=== PATIENT | female | born 2000 | race Caucasian/White ===

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

== ENCOUNTER 2022-10-13 14:33 | Outpatient (REF) | payer MEDICAID, SELFPAY ==
--- NOTE | 2022-10-13 10:45 | PAPFT_PTH ---
PATIENT: Sofia Messina [facility] U#:[id number] AGE/SX: 22/F ROOM: RE10/13/[address]: Zandra Suggs : 2000 BED: DIS: 10/13/2022 SPEC #: [id number] RECD: 10/13/22 16:54 STATUS: JUNE REJacky #: [id number] ALISHA: 10/13/22 10:[address]: Zandra Suggs DEPT: [facility] Cytology RECD BY: Adrianne Pelayo Tissues: 1 - CX/ENDOCX FOR PAP SMEARS Procedures: PAP THIN PREP/UVM Screening Comments: [id number] (CHLAMYDIA/GC)
[2022-10-14 15:26] LABS: Chlamydia Result Negative (Negative); GC Result Negative (Negative)
== END 2022-10-13 14:34 | disposition home or self-care (01) ==
LOC: NCHCN 14:33
PROVIDERS: PCP Nurse Practitioner Family; Visit Provider Nurse Practitioner Family
DX: Z11.3 Encounter for screening for infections with a predominantly sexual mode of transmission (principal); Z12.4 Encounter for screening for malignant neoplasm of cervix
CPT/HCPCS: 87491; 87591; 88142

== ENCOUNTER 2023-05-10 12:26 | Emergency (ER) | payer MEDICAID, SELFPAY ==
[2023-05-10 12:42] VITALS: BP 132/82; PULSE 87; RESP 15; TEMP 37.2; O2SAT 98
--- NOTE | 2023-05-10 14:31 | NUR.NOTE ---
Nursing Note: Pt left without being seen
== END 2023-05-10 14:32 ==
LOC: ER 12:40
PROVIDERS: PCP Nurse Practitioner Family
DX: Z53.21 Procedure and treatment not carried out due to patient leaving prior to being seen by health care provider (principal)

== ENCOUNTER 2023-09-18 03:23 | Outpatient (CLI) | payer OTHER, SELFPAY ==
--- OUTSIDE RECORDS SUMMARY | 2023-09-18 03:24 | XMS_ITS | Encounter Summary ---
Author Organization [facility] Address [address] [place] [address] Care Team Providers Care Corporate Development Manager Name Role Phone Unknown, Provider Primary Care Provider Encounter Details Date Type Department Care Team (Late st Contact Info) Description 03/23/2020 Lab Requisition [facility] Pathology & Laboratory Medicine - [address] [address] Outr Resulting Lab, Provider Social History Tobacco Use Types Packs/Day Years Used Date Smoking Tobacco: Never Assessed Interpersonal Safety Answer Date Record ed Physically Hurt Never 03/23/2020 Verbally Threaten Not on file 03/23/2020 Sex and Gender Information Value Date Recorded Sex Assigned at Not on file Gender Identity Not on file Sexual Orientation Not on file documented as of this encounter Plan of Treatment Not on file documented as of this encounter Procedures Procedure Name Priority Date/Time Associated Diagnosis Comments HEPATITIS C AB W REFLEX TO HCV RNA BY PCR Routine 03/23/2020 14:50 EST HEPATITIS B SURFACE ANTIGEN Routine 03/23/2020 14:50 EST documented in this encounter Results * HEPATITIS B SURFACE ANTIGEN (03/23/2020 14:50 EST) Hep B Surface Ag Negative Negative 03/24/2020 9:20 EST [facility] Blood VENOUS BLOOD / Unknown 03/23/2020 14:50 EST 03/23/2020 21:12 EST Provider Outr Resulting Lab CHEMISTRY & BLOOD GAS ORDERABLES [facility] [address] [place] [address] * HEPATITIS C AB W REFLEX TO HCV RNA BY PCR (03/23/2020 14:50 EST) Hep C Antibody Negative Negative 03/24/2020 10:02 EST [facility] Blood VENOUS BLOOD / Unknown 03/23/2020 14:50 EST 03/23/2020 21:12 EST Provider Outr Resulting Lab CHEMISTRY & BLOOD GAS ORDERABLES Performing Organization Address City/State/[facility] Co de Phone Number [facility] [address] [place] [id number] documented in this encounter Visit Diagnoses Not on filedocumented in this encounter Care Teams Corporate Development Manager Relationship Specialty Start Date End Date Unknown, Provider, PCP - General 10/14/20 documented as of this encounter
--- OUTSIDE RECORDS SUMMARY | 2023-09-18 03:24 | XMS_ITS | Encounter Summary ---
Author Organization [facility] Address [address] [place] [address] Care Team Providers Care Field Tech Name Role Phone Unknown, Provider Primary Care Provider Encounter Details Date Type Department Care Team (Latest Contact Info) Description 10/13/2022 Lab Requisition [facility] Pathology & Laboratory Medicine - [facility] [address] [place], [place] [id number] Zandra Suggs FNP [address] [place] [address] [place] [phone] Encounter for gynecological examination (general) (routine) without abnormal findings; Encounter for screening for malignant neoplasm of cervix; Encounter for general adult medical examination without abnormal findings Social History Tobacco Use Types Packs/Day Years [...] Procedure Name Priority Date/Time Associated Diagnosis Comments PAP TEST Today 10/13/2022 10:45 EDT Encounter for gynecological examination (general) (routine) without abnormal findings Encounter for screening for malignant neoplasm of cervix Encounter for general adult medical examination without abnormal findings CHLAMYDIA/N. GONORRHOEAE AMPLIFIED NUCLEIC ACID, THINPREP Today 10/13/2022 10:45 EDT documented in this encounter Results * PAP TEST (10/13/2022 10:45 EDT) Specimens A. Cervix and/or Endocervix , ThinPrep Imaging System with Manual Evaluation 10/25/2022 13:30 EDT [facility] Specimen Adequacy Satisfactory for Evaluation - transformation zone component present 10/25/2022 13:30 EDT [facility] General Categorization Negative for intraepithelial lesion or malignancy 10/25/2022 13:30 EDT [facility] Attestation . 10/25/2022 13:30 EDT [facility] at 1330 Clinical History See below 10/26/19 13:30 EDT [facility] Performing Lab [facility] 10/25/2022 13:30 EDT [facility] Scanned Images 10/25/2022 13:30 EDT [facility] Pap Test CERVIX UTERI STRUCTURE / Unknown 10/13/2022 10:45 EDT 10/18/2022 15:33 EDT Zandra NEWMAN PATHOLOGY ORDERABLES [facility] [address] [place] [address] * CHLAMYDIA/N. GONORRHOEAE AMPLIFIED RNA, THINPREP (10/13/2022 10:45 EDT) Neisseria gonorrhoeae Result Negative Negative 10/14/2022 15:21 EDT [facility] Chlamydia trachomatis Result Negative Negative 10/14/2022 15:21 EDT [facility] Pap Test CERVIX UTERI STRUCTURE / Unknown 10/13/2022 10:45 EDT 10/14/2022 10:33 EDT Zandra NEWMAN MICROBIOLOGY - GENER AL ORDERABLES Performing Organization Address City/[facility]/ZIP Co de Phone Number [facility] [address] [place] [address] documented in this encounter Visit Diagnoses Diagnosis Encounter for gynecological examination (general) (routine) without abnormal findings Encounter for screening for malignant neoplasm of cervix Screening for malignant neoplasm of the cervix Encounter for general adult medical examination without abnormal findings Unspecified general medical examination documented in this encounter Care Teams Field Tech Relationship Specialty Start Date End Date Unknown, Provider, PCP - General 10/14/20 documented as of this encounter
--- OUTSIDE RECORDS SUMMARY | 2023-09-18 03:24 | XMS_ITS | Encounter Summary ---
Author Organization [facility] Address [address] [place] [address] Care Team Providers Care Shell Sorter Name Role Phone Unknown, Provider Primary Care Provider Encounter Details Date Type Department Care Team (Late st Contact Info) Description 12/05/2020 Lab Requisition [facility] Pathology & Laboratory Medicine - [address] [address] Outr Resulting Lab, Provider Social History Tobacco [...] Procedure Name Priority Date/Time Associated Diagnosis Comments CHLAMYDIA/N. GONORRHOEAE AMPLIFIED NUCLEIC ACID Routine 12/04/2020 17:52 EDT documented in this encounter Results * CHLAMYDIA/N. GONORRHOEAE AMPLIFIED RNA (12/04/2020 17:52 EDT) Neisseria gonorrhoeae Result Negative Negative 12/07/2020 15:18 EDT [facility] Chlamydia trachomatis Result Negative Negative 12/07/2020 15:18 EDT [facility] Swab ENTIRE ENDOCERVIX / Unknown 12/04/2020 17:52 EDT 12/06/2020 21:53 EDT Provider Outr Resulting Lab MICROBIOLOGY - GENERAL ORDERABLES [facility] [address] [place] [address] documented in this encounter Visit Diagnoses Not on filedocumented in this encounter Care Teams Shell Sorter Relationship Specialty Start Date End Date Unknown, Provider, PCP - General 10/14/20 documented as of this encounter
--- OUTSIDE RECORDS SUMMARY | 2023-09-18 03:24 | XMS_ITS | Encounter Summary ---
Author Organization [facility] Address [address] [place] [address] Care Team Providers Care Court Usher Name Role Phone Unknown, Provider Primary Care Provider Encounter Details Date Type Department Care Team (Late st Contact Info) Description 03/23/2020 Lab Requisition [facility] Pathology & Laboratory Medicine - [address] [address] Outr Resulting Lab, Provider Social History Tobacco [...] Procedure Name Priority Date/Time Associated Diagnosis Comments RUBELLA IGG ANTIBODY Routine 03/23/2020 14:50 EST VARICELLA IGG ANTIBODY Routine 03/23/2020 14:50 EST documented in this encounter Results * VARICELLA IGG ANTIBODY (03/23/2020 14:50 EST) Varicella IgG Ab Positive See Note 03/24/2020 10:00 EST [facility] Comment:Presence of detectab le Varicella Zoster virus IgG antibodies. Blood VENOUS BLOOD / Unknown 03/23/2020 14:50 EST 03/23/2020 21:12 EST Provider Outr Resulting Lab IMMUNOLOGY A ND SEROLOGY ORDERABLES [facility] [address] [place] [address] * RUBELLA IGG ANTIBODY (03/23/2020 14:50 EST) Rubella IgG Ab Positive See Note 03/24/2020 10:05 EST [facility] Comment:Positive for IgG ant ibodies to Rubella virus. Blood VENOUS BLOOD / Unknown 03/23/2020 14:50 EST 03/23/2020 21:12 EST Provider Outr Resulting Lab CHEMISTRY & BLOOD GAS ORDERABLES [facility] [address] [place] [address] documented in this encounter Visit Diagnoses Not on filedocumented in this encounter Care Teams Court Usher Relationship Specialty Start Date End Date Unknown, Provider, PCP - General 10/14/20 documented as of this encounter
--- OUTSIDE RECORDS SUMMARY | 2023-09-18 03:24 | XMS_ITS | Encounter Summary ---
Author Organization [facility] Address [address] [place] [address] Care Team Providers Care Drug Enforcement Administration Agent Name Role Phone Unknown, Provider Primary Care Provider Encounter Details Date Type Department Care Team (Late st Contact Info) Description 03/23/2020 Lab Requisition [facility] Pathology & Laboratory Medicine - [address] [address] Outr Resulting Lab, Provider Social History Tobacco [...] Comments CHLAMYDIA/N. GONORRHOEAE AMPLIFIED NUCLEIC ACID Routine 03/23/2020 13:20 EST documented in this encounter Results * CHLAMYDIA/N. GONORRHOEAE AMPLIFIED RNA (03/23/2020 13:20 EST) Neisseria gonorrhoeae Result Negative Negative 03/24/2020 15:17 EST [facility] Chlamydia trachomatis Result Negative Negative 03/24/2020 15:17 EST [facility] Swab ENTIRE ENDOCERVIX / Unknown 03/23/2020 13:20 EST 03/23/2020 21:13 EST Provider Outr Resulting Lab MICROBIOLOGY - GENERAL ORDERABLES [facility] [address] [place] [address] documented in this encounter Visit Diagnoses Not on filedocumented in this encounter Care Teams Drug Enforcement Administration Agent Relationship Specialty Start Date End Date Unknown, Provider, PCP - General 10/14/20 documented as of this encounter
--- OUTSIDE RECORDS SUMMARY | 2023-09-18 03:24 | XMS_ITS | Referral Summary ---
Author Organization [facility] Address [address] [place] [address] Care Team Providers Care Disc Pad Plate Filler Name Role Phone Unknown, Provider Primary Care Provider Social History Tobacco Use Types Packs/Day Years Used Date Smoking Tobacco: Never Assessed Interpersonal Safety Answer Date Record ed Physically Hurt Never 03/23/2020 Verbally Threaten Not on file 03/23/2020 Sex and Gender Information Value Date Recorded Sex Assigned at Not on file Gender Identity Not on file Sexual Orientation Not on file Plan of Treatment Not on file Procedures Procedure Name Priority Date/Time Associated Diagnosis Comments HEPATITIS C AB W REFLEX TO HCV RNA BY PCR Routine 03/23/2020 14:50 EST from Last 3 Months or Most Recently Relevant to Health Maintenance Results * HEPATITIS C AB W REFLEX TO HCV RNA BY PCR (03/23/2020 14:50 EST) Hep C Antibody Negative Negative 03/24/2020 10:02 EST [facility] Blood VENOUS BLOOD / Unknown 03/23/2020 14:50 EST 03/23/2020 21:12 EST Provider Outr Resulting Lab CHEMISTRY & BLOOD GAS ORDERABLES [facility] [address] [place] [address] from Last 3 Months or Most Recently Relevant to Health Maintenance Care Teams Disc Pad Plate Filler Relationship Specialty Start Date End Date Unknown, Provider, PCP - General 10/14/20
--- OUTSIDE RECORDS SUMMARY | 2023-09-18 03:24 | XMS_ITS | Encounter Summary ---
Author Organization [facility] Address [address] [place] [address] Care Team Providers Care Student Name Role Phone Unknown, Provider Primary Care Provider Encounter Details Date Type Department Care Team (Late st Contact Info) Description 03/23/2020 Lab Requisition [facility] Pathology & Laboratory Medicine - [facility] [address] [place] [address] Outr Resulting Lab, Provider Social History Tobacco [...] Procedure Name Priority Date/Time Associated Diagnosis Comments HIV 1/2 ANTIGEN AND ANTIBODY, 4TH GENERATION Routine 03/23/2020 14:50 EST documented in this encounter Results * HIV 1/2 ANTIGEN AND ANTIBODY, 4TH GENERATION (03/23/2020 14:50 EST) HIV 1 and 2 Antibody/p24 Antigen, 4th Generation Negative Negative 03/24/2020 10:16 EST [facility] Comment: If acute HIV-1 infection is suspected in a high risk ??patient, submit plasma specimen for HIV-1 RNA quantitation test. Fourth Generation assay performed on the Siemens Centaur. Blood VENOUS BLOOD / Unknown 03/23/2020 14:50 EST 03/23/2020 21:12 EST Provider Outr Resulting Lab IMMUNOLOGY A ND SEROLOGY ORDERABLES [facility] [address] [place] [address] documented in this encounter Visit Diagnoses Not on filedocumented in this encounter Care Teams Student Relationship Specialty Start Date End Date Unknown, Provider, PCP - General 10/14/20 documented as of this encounter
--- OUTSIDE RECORDS SUMMARY | 2023-09-18 03:24 | XMS_ITS | Encounter Summary ---
Author Organization [facility] Address [address] [place] [address] Care Team Providers Care Head Gauge Unit Operator Name Role Phone Unknown, Provider Primary Care Provider Encounter Details Date Type Department Care Team (Late st Contact Info) Description 10/21/2020 Lab Requisition [facility] Pathology & Laboratory Medicine - [address] [address] Tabatha Rodríguez, LIFEGUARD [address] [place] [address] Encounter for other general examination Social History Tobacco Use Types Packs/Day Years [...] Procedure Name Priority Date/Time Associated Diagnosis Comments SURGICAL PATHOLOGY Today 10/20/2020 21 :25 EDT Encounter for other general examination documented in this encounter Results * SURGICAL PATHOLOGY (10/20/2020 21:25 EDT) Note to Patient The following pathology results have been interpreted by your pathologist and may be available to you before your health provider has had the opportunity to review them. Please allow time for your provider to receive these results and explore management options, if applicable. 10/30/2020 13:[address] [facility] Final Diagnosis A. PLACENTA: Nova placenta, 382 grams (~10th %ile for 40 and 5/7 weeks gestational age). - Disc: - Appropriate villous maturation. - Patchy chorangiosis and mild normoblastemia. - Membranes: - Decidua with extensive hemosiderin deposition, suggestive of chronic abruption. - 3 vessel umbilical cord: - No significant histopathologic changes. 10/30/2020 13:07 [facility] Attestation By the signature below, the attending physician certifies that they have 1) personally conducted a gross and/or microscopic examination of the described specimen(s), and/or personally interpreted the results of laboratory testing of the described specimen(s), and 2) personally rendered or confirmed the above diagnosis. 10/30/2020 13:07 [facility] at 1307 Clinical History COVID positive at time of delivery, 11% growth on US (40 wks 5 days), 10-15-20 KIRA by US, LMP: Uncertain; clinical diagnosis code: Z20.822, U07.1 10/30/2020 13:07 [facility] Gross Description A. Received in formalin labelled with proper patient identification (initials H, D) and placenta is a nova placenta. There is a 36.3 cm in length and 1.0 cm in diameter attached, three vessel white umbilical cord. It demonstrates a paracentral insertion 5.5 cm from the nearest disc margin. There are 3 coils per 10 cm. A detached portion of cord is not present. The membranes are watters-multani and semi translucent with a marginate insertion. The point of rupture lies 4.0 cm from the nearest disc margin. The disc is 382.0 g, (trimmed, formalin fixed), 15.0 x 13.5 x 3.5 cm and ovoid. The surface is pale blue-multani to watters with a dispersed vascular pattern. There are no lesions present on the surface. The maternal surface is brown-multani and focally calcified with an intact basal plate. There a small amount of loosely attached blood clot. There is no indentation. The cut surface of the placental parenchyma is spongy, red-brown. There are no discrete lesions present. Certified Medical Technician sections are submitted as follows: BLOCK NUNN A1- membrane roll and cross-section of end of cord A2- cross-section of cord 5 cm from insertion site A3 and A4- full thickness section of central 2/3 of placental disc adjacent to umbilical cord insertion site, bisected A5 and A6- full thickness section of central 2/3 of placental disc, bisected LAISHA HOLLEY(ASCP) 10/22/2020 9:02 10/30/2020 13:[address] [facility] Performing Lab [facility] 13:[address] [facility] Scanned Images 10/30/2020 13:[address] [facility] Tissue PLACENTAL STRUCTURE / Unknown 10/20/2020 21:25 EDT 10/21/2020 16:13 EDT Tabatha Rodríguez APN PATHOLOGY ORDERAB LES [facility] [address] [place] [address] documented in this encounter Visit Diagnoses Diagnosis Encounter for other general examination documented in this encounter Care Teams Head Gauge Unit Operator Relationship Specialty Start Date End Date Unknown, Provider, PCP - General 10/14/20 documented as of this encounter
--- OUTSIDE RECORDS SUMMARY | 2023-09-18 03:24 | XMS_ITS | Clinical Summary ---
Author Organization [facility] Address [address] [place] [address] Care Team Providers Care Building Equipment Inspector Name Role Phone Unknown, Provider Primary Care Provider Social History Tobacco Use Types Packs/Day Years Used Date Smoking Tobacco: Never Assessed Interpersonal Safety Answer Date Record ed Physically Hurt Never 03/23/2020 Verbally Threaten Not on file 03/23/2020 Sex and Gender Information Value Date Recorded Sex Assigned at Not on file Gender Identity Not on file Sexual Orientation Not on file Plan of Treatment Health Maintenance Due Date Last Done Comments Hepatitis B Vaccine (1 of 3 - 19+ 3-dose series) 02/16 COVID-19 Vaccine (2022- season) 2022 Hepatitis C Screen Completed 03/23/2020 Procedures Procedure Name Priority Date/Time Associated Diagnosis Comments HEPATITIS C AB W REFLEX TO HCV RNA BY PCR Routine 03/23/2020 14:50 EST from Last 3 Months or Most Recently Relevant to Health Maintenance Results * HEPATITIS C AB W REFLEX TO HCV RNA BY PCR (03/23/2020 14:50 EST) Hep C Antibody Negative Negative 03/24/2020 10:02 EST [facility] Blood VENOUS BLOOD / Unknown 03/23/2020 14:50 EST 03/23/2020 21:12 EST Provider Outr Resulting Lab CHEMISTRY & BLOOD GAS ORDERABLES [facility] [address] [place] [address] from Last 3 Months or Most Recently Relevant to Health Maintenance Care Teams Building Equipment Inspector Relationship Specialty Start Date End Date Unknown, Provider, PCP - General 10/14/20
[2023-09-18 13:14] LABS: Panorama Kit Sent via Fed Ex
[2023-09-18 14:03] LABS: Abs Immature Grans 0.02 10^3/uL (0.0-0.06); Absolute Basophil Count 0.04 10^3/uL (0.0-0.2); Absolute Eosinophil Count 0.12 10^3/uL (0.0-0.7); Absolute Lymphocyte Count 1.04 10^3/uL (1.2-3.4); Absolute Monocyte Count 0.28 10^3/uL (0.1-0.8); Absolute Neutrophil Count 5.63 10^3/uL (1.2-6.7); Basophils % 0.6 %; Eosinophils % 1.7 %; HCT 39.3 % (36.0-46.0); HGB 13.8 g/dL (11.2-15.7); Immature Grans % 0.3 %; Lymphocytes % 14.6 %; MCH 30.1 pg (27.0-33.0); MCHC 35.1 % (32.0-36.0); MCV 86 fL (80-95); MPV 11.5 fL (8.0-11.0); Monocytes % 3.9 %; Neutrophils % 78.9 %; Platelet Count 208 10^3/uL (130-400); RBC 4.59 10^6/uL (3.93-5.22); RDW 12.5 % (11.7-14.6); RDW-SD 38.6 fL; WBC 7.13 10^3/uL (4.4-10.8)
[2023-09-19 09:13] LABS: Hepatitis B Surface Ag Negative (Negative)
[2023-09-19 09:51] LABS: HIV-1/2 Ag & Ab Screen Negative (Negative)
[2023-09-19 10:16] LABS: Hepatitis C Ab w Rflx HCV PCR Negative (Negative)
[2023-09-19 10:18] LABS: Varicella IgG Antibody Positive (See Note)
[2023-09-19 10:43] LABS: Rubella IgG Ab (UVM) Positive (See Note)
[2023-09-20 13:49] LABS: Syphilis IgG w/Reflex Nonreactive (Nonreactive)
== END 2023-09-18 03:24 | disposition home or self-care (01) ==
LOC: LBO 03:23
PROVIDERS: PCP Nurse Practitioner Family; Visit Provider Advanced Practice Midwife
DX: Z34.91 Encounter for supervision of normal pregnancy, unspecified, first trimester (principal)
CPT/HCPCS: 36415; 86787; 86803; 86850; 86900; 86901; 87340; 87389; 85025; 86762; 86780

== ENCOUNTER 2023-09-18 11:38 | Outpatient (REF) | payer OTHER, SELFPAY ==
[2023-09-18 13:32] LABS: *AMPHETAMINES SCREEN URINE Negative (Negative); *BARBITURATES SCREEN URINE Negative (Negative); *BENZODIAZEPINES SCREEN URINE Negative (Negative); Cannabinoids THC Negative (Negative); Cocaine Screen,Urine Negative (Negative); OPIATES URINE SCREEN Negative (Negative); Tricyclic Antidepressants Negative (Negative)
[2023-09-19 11:53] LABS: Fentanyl Scr w/Rfx Confirm Negative ng/mL (<1)
[2023-09-19 14:10] LABS: Chlamydia Result Negative (Negative); GC Result Negative (Negative)
[2023-09-22 08:41] LABS: Buprenorphine Negative ng/mL (Cutoff: 5.0); Norbuprenorphine Negative ng/mL (Cutoff: 2.5)
== END 2023-09-18 11:39 | disposition home or self-care (01) ==
LOC: LBN 11:38
PROVIDERS: PCP Nurse Practitioner Family; Visit Provider Advanced Practice Midwife
DX: Z34.91 Encounter for supervision of normal pregnancy, unspecified, first trimester (principal)
CPT/HCPCS: 80307; 80348; 87491; 87591; 87086

== ENCOUNTER 2024-01-05 02:43 | Outpatient (CLI) | payer OTHER, MEDICAID, SELFPAY ==
[2024-01-05 14:41] LABS: HCT 32.1 % (36.0-46.0); HGB 11.1 g/dL (11.2-15.7); MCH 30.7 pg (27.0-33.0); MCHC 34.6 % (32.0-36.0); MCV 89 fL (80-95); MPV 9.9 fL (8.0-11.0); Platelet Count 233 10^3/uL (130-400); RBC 3.61 10^6/uL (3.93-5.22); RDW 11.6 % (11.7-14.6); RDW-SD 37.5 fL; WBC 7.58 10^3/uL (4.4-10.8)
[2024-01-05 15:13] LABS: Glucose,1 Hr (Glucola) 102 mg/dL (80-140)
[2024-01-05 15:19] LABS: *AMPHETAMINES SCREEN URINE Negative (Negative); *BARBITURATES SCREEN URINE Negative (Negative); *BENZODIAZEPINES SCREEN URINE Negative (Negative); Cannabinoids THC Negative (Negative); Cocaine Screen,Urine Negative (Negative); METHADONE URINE SCREEN Negative (Negative); OPIATES URINE SCREEN Negative (Negative)
[2024-01-05 15:32] LABS: Tricyclic Antidepressants Negative (Negative)
[2024-01-08 11:38] LABS: Fentanyl Scr w/Rfx Confirm Negative ng/mL (<1)
== END 2024-01-05 02:44 | disposition home or self-care (01) ==
LOC: LBO 02:43
PROVIDERS: PCP Nurse Practitioner Family; Visit Provider Advanced Practice Midwife
DX: Z34.92 Encounter for supervision of normal pregnancy, unspecified, second trimester (principal)
CPT/HCPCS: 36415; 80307; 82950; 85027

== ENCOUNTER 2024-01-31 08:29 | Outpatient (CLI) | payer OTHER, MEDICAID, SELFPAY ==
--- OUTSIDE RECORDS SUMMARY | 2024-01-31 08:31 | XMS_ITS | Encounter Summary ---
Author Organization [facility] Address [address] [place] [address] Care Team Providers Care Bookmobile Clerk Name Role Phone Unknown, Provider Primary Care Provider Unava ilable Encounter Details Date Type Department Care Team (Late st Contact Info) Description 03/23/2020 Lab Requisition [facility] Pathology & Laboratory Medicine - [address] [address] Outr Resulting Lab, Provider Social History Tobacco Use Types Packs/Day Years Used Date Smoking Tobacco: Never Assessed Interpersonal Safety Answer Date Record ed Physically Hurt Never 03/23/2020 Verbally Threaten Not on file 03/23/2020 Comments Unknown Sex and Gender Information Value Date Recorded Sex Assigned at Not on file Legal Sex Female 18:12 EST Gender Identity Not on file Sexual Orientation [...] gonorrhoeae Result Negative Negative 03/24/2020 15:17 EST [facility] Chlamydia trachomatis Result Negative Negative 03/24/2020 15:17 EST [facility] Swab ENTIRE ENDOCERVIX / Unknown 03/23/2020 13:20 EST 03/23/2020 21:13 EST us Provider Outr Resulting Lab MICROBIOLOGY - GENER AL ORDERABLES Final Result [facility] [address] [place] [address] documented in this encounter Visit Diagnoses Not on filedocumented in this encounter Care Teams Bookmobile Clerk Relationship Specialty Start Date End Date Unknown, Provider, PCP - General 10/14/20 documented as of this encounter
--- OUTSIDE RECORDS SUMMARY | 2024-01-31 08:31 | XMS_ITS | Encounter Summary ---
Author Organization [facility] Address [address] [place] [address] Care Team Providers Care Research Dairy Farm Supervisor Name Role Phone Unknown, Provider Primary Care Provider Unava ilable Encounter Details Date Type Department Care Team (Late st Contact Info) Description 09/18/2023 Lab Requisition [facility] Pathology & Laboratory Medicine - [facility] [address] [place] [address] Outr Resulting Lab, Provider Social History Tobacco [...] Procedure Name Priority Date/Time Associated Diagnosis Comments FENTANYL SCREEN WITH REFLEX TO CONFIRMATION, U Routine 09/18/2023 10:35 EDT documented in this encounter Results * FENTANYL SCREEN WITH REFLEX TO CONFIRMATION, U (09/18/2023 10:35 EDT) Fentanyl Screen with Reflex to Confirmation, U Negative <1 ng/mL 09/19/2023 11:48 EDT [facility] Urine URINE / Unknown 09/18/2023 1 0:35 EDT 09/18/2023 21:23 EDT Narrative [facility] - 09/19/2023 11:48 EDT Testing performed by: [email or web address] [address] [place] [address], [address], [place] [address] Maintenance Groundman: Ever Snow MD; CLIA # [id number] us Provider Outr Resulting Lab URINALYSIS ORDERABLE S Final Result [facility] [address] [facility], [address] [phone] documented in this encounter Visit Diagnoses Not on filedocumented in this encounter Care Teams Research Dairy Farm Supervisor Relationship Specialty Start Date End Date Unknown, Provider, PCP - General 10/14/20 documented as of this encounter
--- OUTSIDE RECORDS SUMMARY | 2024-01-31 08:31 | XMS_ITS | Encounter Summary ---
Author Organization [facility] Address [address] [place] [address] Care Team Providers Care Gallery Manager Name Role Phone Unknown, Provider Primary Care Provider Unava ilable Encounter Details Date Type Department Care Team (Late st Contact Info) Description 01/05/2024 Lab Requisition [facility] Pathology & Laboratory Medicine - [facility] [address] [place] [address] Outr Resulting Lab, Provider Social History Tobacco [...] SCREEN WITH REFLEX TO CONFIRMATION, U Routine 01/05/2024 14:10 EST documented in this encounter Results * FENTANYL SCREEN WITH REFLEX TO CONFIRMATION, U (01/05/2024 14:10 EST) Fentanyl Screen with Reflex to Confirmation, U Negative <1 ng/mL 01/08/2024 11:33 EST [facility] Urine URINE / Unknown 01/05/2024 1 4:10 EST 01/05/2024 21:07 EST Narrative [facility] - 01/08/2024 11:33 EST Testing performed by: [email or web address] [address] [place] [address], [address], [place] [address] Consulting Practice Director: Ever Snow MD; CLIA # [id number] us Provider Outr Resulting Lab URINALYSIS ORDERABLE S Final Result [facility] [address] [facility], [address] [phone] documented in this encounter Visit Diagnoses Not on filedocumented in this encounter Care Teams Gallery Manager Relationship Specialty Start Date End Date Unknown, Provider, PCP - General 10/14/20 documented as of this encounter
--- OUTSIDE RECORDS SUMMARY | 2024-01-31 08:31 | XMS_ITS | Referral Summary ---
Author Organization [facility] Address [address] [place] [address] Care Team Providers Care Loan Analyst Name Role Phone Unknown, Provider Primary Care Provider Unava ilable Encounters Date Type Department Care Team Description 01/05/2024 Lab Requisition [facility] Pathology & Laboratory Medicine - [facility] [address] [place] [address] Outr Resulting Lab, Provider from Last 3 Months Social History Tobacco Use Types Packs/Day Years [...] TO CONFIRMATION, U Routine 01/05/2024 14:10 EST HEPATITIS C AB W REFLEX TO HCV RNA BY PCR Routine 09/18/2023 11:59 EDT from Last 3 Months or Most Recently Relevant to Health Maintenance Results * FENTANYL SCREEN WITH REFLEX TO CONFIRMATION, U (01/05/2024 14:10 EST) Fentanyl Screen with Reflex to Confirmation, U Negative <1 ng/mL 01/08/2024 11:33 EST [facility] Urine URINE / Unknown 01/05/2024 1 4:10 EST 01/05/2024 21:07 EST Narrative [facility] - 01/08/2024 11:33 EST Testing performed by: [facility] [address] [place] [address], [address], [place] [address] Wafer Production Lead Worker: Ever Snow MD; CLIA # [id number] us Provider Outr Resulting Lab URINALYSIS ORDERABLE S Final Result [facility] [address] [facility], [address] [place], [place] [address] [place] [address] * HEPATITIS C AB W REFLEX TO HCV RNA BY PCR (09/18/2023 11:59 EDT) Hep C Antibody Negative Negative 09/19/2023 10:[address] [facility] Blood VENOUS BLOOD / Unknown 09/18/2023 11:59 EDT 09/18/2023 21:23 EDT Provider Outr Resulting Lab CHEMISTRY & BLOOD GA S ORDERABLES Final Result [facility] [address] [place] [address] from Last 3 Months or Most Recently Relevant to Health Maintenance Insurance MEDICAID [employer] Care Teams Loan Analyst Relationship Specialty Start Date End Date Unknown, Provider, PCP - General 10/14/20
--- OUTSIDE RECORDS SUMMARY | 2024-01-31 08:31 | XMS_ITS | Encounter Summary ---
Author Organization [facility] Address [address] [place] [address] Care Team Providers Care Test Clerk Name Role Phone Unknown, Provider Primary Care Provider Unava ilable Encounter Details Date Type Department Care Team (Late st Contact Info) Description 09/18/2023 Lab Requisition [facility] Pathology & Laboratory Medicine - [facility] [address] [place] [address] Outr Resulting Lab, Provider Social History Tobacco [...] Comments CHLAMYDIA/N. GONORRHOEAE AMPLIFIED NUCLEIC ACID Routine 09/18/2023 10:35 EDT documented in this encounter Results * CHLAMYDIA/N. GONORRHOEAE AMPLIFIED NUCLEIC ACID (09/18/2023 10:35 EDT) Neisseria gonorrhoeae Result Negative Negative 09/19/2023 14:05 EDT [facility] Chlamydia trachomatis Result Negative Negative 09/19/2023 14:05 EDT [facility] Swab VAGINAL STRUCTURE / Unknown 09/18/2023 10:35 EDT 09/18/2023 21:28 EDT us Provider Outr Resulting Lab MICROBIOLOGY - GENER AL ORDERABLES Final Result [facility] [address] [place] [address] documented in this encounter Visit Diagnoses Not on filedocumented in this encounter Care Teams Test Clerk Relationship Specialty Start Date End Date Unknown, Provider, PCP - General 10/14/20 documented as of this encounter
--- OUTSIDE RECORDS SUMMARY | 2024-01-31 08:31 | XMS_ITS | Encounter Summary ---
Author Organization [facility] Address [address] [place] [address] Care Team Providers Care Hogshead Head Matcher Name Role Phone Unknown, Provider Primary Care Provider Unava ilable Encounter Details Date Type Department Care Team (Latest Contact Info) Description 10/13/2022 Lab Requisition [facility] Pathology & Laboratory Medicine - [facility] [address] [place] [address] Zandra Suggs FNP [address] [facility] [address] [place] [phone] Encounter for gynecological examination (general) (routine) [...] System with Manual Evaluation 10/25/2022 13:30 EDT [facility] Specimen Adequacy Satisfactory for Evaluation - transformation zone component present 10/25/2022 13:30 EDT [facility] General Categorization Negative for intraepithelial lesion or malignancy 10/25/2022 13:30 EDT [facility] Attestation . 10/25/2022 13:30 EDT [facility] at 1330 Clinical History See below 10/26/19 13:30 EDT [facility] Performing Lab [facility] 10/25/2022 13:30 T [facility] Scanned Images 10/25/2022 13:30 EDT [facility] Pap Test CERVIX UTERI STRUCTURE / Unknown 10/13/2022 10:45 EDT 10/18/2022 15:33 EDT us Zandra NEWMAN PATHOLOGY ORDERABLES Final Resul t Performing Organization Address City/[facility]/ZIP Co de Phone Number [facility] [address] [place] [address] * CHLAMYDIA/N. GONORRHOEAE AMPLIFIED RNA, THINPREP (10/13/2022 10:45 EDT) Neisseria gonorrhoeae Result Negative Negative 10/14/2022 15:21 EDT [facility] Chlamydia trachomatis Result Negative Negative 10/14/2022 15:21 EDT [facility] Pap Test CERVIX UTERI STRUCTURE / Unknown 10/13/2022 10:45 EDT 10/14/2022 10:33 EDT us Zandra NEWMAN MICROBIOLOGY - GENERAL ORDERABLE S Final Result [facility] [address] [place] [address] documented in this encounter Visit Diagnoses Diagnosis Encounter for gynecological examination (general) (routine) without abnormal findings Encounter for screening for malignant neoplasm of cervix Screening for malignant neoplasm of the cervix Encounter for general adult medical examination without abnormal findings Unspecified general medical examination documented in this encounter Care Teams Hogshead Head Matcher Relationship Specialty Start Date End Date Unknown, Provider, PCP - General 10/14/20 documented as of this encounter
--- OUTSIDE RECORDS SUMMARY | 2024-01-31 08:31 | XMS_ITS | Encounter Summary ---
Author Organization [facility] Address [address] [place] [address] Care Team Providers Care Extended Day Teacher Name Role Phone Unknown, Provider Primary Care Provider Unava ilable Encounter Details Date Type Department Care Team (Late st Contact Info) Description 03/23/2020 Lab Requisition [facility] Pathology & Laboratory Medicine - [facility] [address] [place] [address] Outr Resulting Lab, Provider Social History Tobacco [...] 4th Generation Negative Negative 03/24/2020 10:16 EST [facility] Comment: If acute HIV-1 infection is suspected in a high risk ??patient, submit plasma specimen for HIV-1 RNA quantitation test. Fourth Generation assay performed on the Siemens Centaur. Blood VENOUS BLOOD / Unknown 03/23/2020 14:50 EST 03/23/2020 21:12 EST us Provider Outr Resulting Lab IMMUNOLOGY AND SEROL OGY ORDERABLES Final Result [facility] [address] [place] [address] documented in this encounter Visit Diagnoses Not on filedocumented in this encounter Care Teams Extended Day Teacher Relationship Specialty Start Date End Date Unknown, Provider, PCP - General 10/14/20 documented as of this encounter
--- OUTSIDE RECORDS SUMMARY | 2024-01-31 08:31 | XMS_ITS | Encounter Summary ---
Author Organization [facility] Address [address] [place] [address] Care Team Providers Care Enrober Name Role Phone Unknown, Provider Primary Care Provider Unava ilable Encounter Details Date Type Department Care Team (Late st Contact Info) Description 09/18/2023 Lab Requisition [facility] Pathology & Laboratory Medicine - [facility] [address] [place] [address] Outr Resulting Lab, Provider Social History Tobacco [...] Associated Diagnosis Comments RUBELLA IGG ANTIBODY Routine 09/18/2023 11:59 EDT VARICELLA IGG ANTIBODY Routine 09/18/2023 11:59 EDT documented in this encounter Results * VARICELLA IGG ANTIBODY (09/18/2023 11:59 EDT) Varicella IgG Ab Positive See Note 09/19/2023 10:14 EDT [facility] Comment:Presence of detectab le Varicella Zoster virus IgG antibodies. Blood VENOUS BLOOD / Unknown 09/18/2023 11:59 EDT 09/18/2023 21:23 EDT us Provider Outr Resulting Lab IMMUNOLOGY AND SEROL OGY ORDERABLES Final Result [facility] [address] [place] [address] * RUBELLA IGG ANTIBODY (09/18/2023 11:59 EDT) Rubella IgG Ab Positive See Note 09/19/2023 10:39 EDT [facility] Comment:Positive for IgG ant ibodies to Rubella virus. Blood VENOUS BLOOD / Unknown 09/18/2023 11:59 EDT 09/18/2023 21:23 EDT us Provider Outr Resulting Lab CHEMISTRY & BLOOD GA S ORDERABLES Final Result [facility] [address] [place] [address] documented in this encounter Visit Diagnoses Not on filedocumented in this encounter Care Teams Enrober Relationship Specialty Start Date End Date Unknown, Provider, PCP - General 10/14/20 documented as of this encounter
--- OUTSIDE RECORDS SUMMARY | 2024-01-31 08:31 | XMS_ITS | Encounter Summary ---
Author Organization [facility] Address [address] [place] [address] Care Team Providers Care Casing Cleaner Name Role Phone Unknown, Provider Primary Care Provider Unava ilable Encounter Details Date Type Department Care Team (Late st Contact Info) Description 03/23/2020 Lab Requisition [facility] Pathology & Laboratory Medicine - [facility] [address] [place] [address] Outr Resulting Lab, Provider Social History Tobacco [...] Ab Positive See Note 03/24/2020 10:00 EST [facility] Comment:Presence of detectab le Varicella Zoster virus IgG antibodies. Blood VENOUS BLOOD / Unknown 03/23/2020 14:50 EST 03/23/2020 21:12 EST us Provider Outr Resulting Lab IMMUNOLOGY AND SEROL OGY ORDERABLES Final Result [facility] [address] [place] [address] * RUBELLA IGG ANTIBODY (03/23/2020 14:50 EST) Rubella IgG Ab Positive See Note 03/24/2020 10:05 EST [facility] Comment:Positive for IgG ant ibodies to Rubella virus. Blood VENOUS BLOOD / Unknown 03/23/2020 14:50 EST 03/23/2020 21:12 EST us Provider Outr Resulting Lab CHEMISTRY & BLOOD GA S ORDERABLES Final Result [facility] [address] [place] [address] documented in this encounter Visit Diagnoses Not on filedocumented in this encounter Care Teams Casing Cleaner Relationship Specialty Start Date End Date Unknown, Provider, PCP - General 10/14/20 documented as of this encounter
--- OUTSIDE RECORDS SUMMARY | 2024-01-31 08:31 | XMS_ITS | Clinical Summary ---
Author Organization [facility] Address [address] [place] [address] Care Team Providers Care Manager Stars Name Role Phone Unknown, Provider Primary Care Provider Unava ilable Encounters Date Type Department Care Team Description 01/05/2024 Lab Requisition [facility] Pathology & Laboratory Medicine - [facility] [address] [place] [address] Outr Resulting Lab, Provider from Last 3 [...] (1 of 3 - 19+ 3-dose series) 02/17/2020 COVID-19 Vaccine (2023- season) 2023 Hepatitis C Screen Completed 09/18/2023, 03/23/2020 Procedures Procedure Name Priority Date/Time Associated [...] U Negative <1 ng/mL 01/08/2024 11:33 EST [facility] Urine URINE / Unknown 01/05/2024 1 4:10 EST 01/05/2024 21:07 EST Narrative [facility] - 01/08/2024 11:33 EST Testing performed [facility] [address] [place] [address], [address], [place] [address] Packager Hand: Ever Snow MD; CLIA # [id number] Provider Outr Resulting Lab URINALYSIS ORDERABLE S Final Result [facility] [address] [place] [address], [facility] [address] [phone] * HEPATITIS C AB W REFLEX TO HCV RNA BY PCR (09/18/2023 11:59 EDT) Hep C Antibody Negative Negative 09/19/2023 10:12 EDT [facility] Blood VENOUS BLOOD / Unknown 09/18/2023 11:59 EDT 09/18/2023 21:23 EDT us Provider Outr Resulting Lab CHEMISTRY & BLOOD GA S ORDERABLES Final Result [facility] [address] [place] [address] from Last 3 Months or Most Recently Relevant to Health Maintenance Insurance MEDICAID [place] Care Teams Manager Stars Relationship Specialty Start Date End Date Unknown, Provider, PCP - General 10/14/20
--- OUTSIDE RECORDS SUMMARY | 2024-01-31 08:31 | XMS_ITS | Encounter Summary ---
Author Organization [facility] Address [address] [place] [address] Care Team Providers Care Travel Insurance Agent Name Role Phone Unknown, Provider Primary Care Provider Unava ilable Encounter Details Date Type Department Care Team (Late st Contact Info) Description 03/23/2020 Lab Requisition [facility] Pathology & Laboratory Medicine - [facility] [address] [place] [address] Outr Resulting Lab, Provider Social History Tobacco [...] Surface Ag Negative Negative 03/24/2020 9:20 EST [facility] Blood VENOUS BLOOD / Unknown 03/23/2020 14:50 EST 03/23/2020 21:12 EST us Provider Outr Resulting Lab CHEMISTRY & BLOOD GA S ORDERABLES Final Result [facility] [address] [place] [address] * HEPATITIS C AB W REFLEX TO HCV RNA BY PCR (03/23/2020 14:50 EST) Hep C Antibody Negative Negative 03/24/2020 10:02 EST [facility] Blood VENOUS BLOOD / Unknown 03/23/2020 14:50 EST 03/23/2020 21:12 EST us Provider Outr Resulting Lab CHEMISTRY & BLOOD GA S ORDERABLES Final Result [facility] [address] [place] [address] documented in this encounter Visit Diagnoses Not on filedocumented in this encounter Care Teams Travel Insurance Agent Relationship Specialty Start Date End Date Unknown, Provider, PCP - General 10/14/20 documented as of this encounter
--- OUTSIDE RECORDS SUMMARY | 2024-01-31 08:31 | XMS_ITS | Encounter Summary ---
Author Organization [facility] Address [address] [place] [address] Care Team Providers Care Solar Applications Development Engineer Name Role Phone Unknown, Provider Primary Care Provider Unava ilable Encounter Details Date Type Department Care Team (Late st Contact Info) Description 12/05/2020 Lab Requisition [facility] Pathology & Laboratory Medicine - [address] [address] Outr Resulting Lab, Provider Social History Tobacco [...] gonorrhoeae Result Negative Negative 12/07/2020 15:18 EDT [facility] Chlamydia trachomatis Result Negative Negative 12/07/2020 15:18 EDT [facility] Swab ENTIRE ENDOCERVIX / Unknown 12/04/2020 17:52 EDT 12/06/2020 21:53 EDT us Provider Outr Resulting Lab MICROBIOLOGY - GENER AL ORDERABLES Final Result [facility] [address] [place] [address] documented in this encounter Visit Diagnoses Not on filedocumented in this encounter Care Teams Solar Applications Development Engineer Relationship Specialty Start Date End Date Unknown, Provider, PCP - General 10/14/20 documented as of this encounter
--- OUTSIDE RECORDS SUMMARY | 2024-01-31 08:31 | XMS_ITS | Encounter Summary ---
Author Organization [facility] Address [address] [place] [address] Care Team Providers Care Disaster Recovery Specialist Name Role Phone Unknown, Provider Primary Care Provider Unava ilable Encounter Details Date Type Department Care Team (Late st Contact Info) Description 10/21/2020 Lab Requisition [facility] Pathology & Laboratory Medicine - [address] [address] Tabatha Rodríguez, GYROSCOPIC ENGINEERING TECHNICIAN [address] [place] [address] Encounter for other general examination [...] management options, if applicable. 10/30/2020 13:07 EDT [facility] Final Diagnosis A. PLACENTA: Nova placenta, 382 grams (~10th %ile for 40 and 5/7 weeks gestational age). - Disc: - Appropriate villous maturation. - Patchy chorangiosis and mild normoblastemia. - Membranes: - Decidua with extensive hemosiderin deposition, suggestive of chronic abruption. - 3 vessel umbilical cord: - No significant histopathologic changes. 10/30/2020 13:07 [facility] Attestation By the signature below, the attending physician certifies that they have 1) personally conducted a gross and/or microscopic examination of the described specimen(s), and/or personally interpreted the results of laboratory testing of the described specimen(s), and 2) personally rendered or confirmed the above diagnosis. 10/30/2020 13:07 [facility] at 1307 Clinical History COVID positive at time of delivery, 11% growth on US (40 wks 5 days), 9--21 KIRA by US, LMP: Uncertain; clinical diagnosis code: Z20.822, U07.1 10/30/2020 13:07 [facility] Gross Description A. Received in [...] red-brown. There are no discrete lesions present. Registration Manager sections are submitted as follows: BLOCK NUNN [...] LAISHA HOLLEY(ASCP) 10/22/2020 9:02 10/30/2020 13:07 EDT [facility] Performing Lab [facility] 13:07 EDT [facility] Scanned Images 10/30/2020 13:07 EDT [facility] Tissue PLACENTAL STRUCTURE / Unknown 10/20/2020 21:25 EDT 10/21/2020 16:13 EDT us Tabatha Rodríguez APN PATHOLOGY ORDERABLES Carolina winkler Result [facility] [address] [place] [address] documented in this encounter Visit Diagnoses Diagnosis Encounter for other general examination documented in this encounter Care Teams Disaster Recovery Specialist Relationship Specialty Start Date End Date Unknown, Provider, PCP - General 10/14/20 documented as of this encounter
--- OUTSIDE RECORDS SUMMARY | 2024-01-31 08:31 | XMS_ITS | Encounter Summary ---
Author Organization [facility] Address [address] [place] [address] Care Team Providers Care Logging Truck Driver Name Role Phone Unknown, Provider Primary Care Provider Unava ilable Encounter Details Date Type Department Care Team (Late st Contact Info) Description 09/18/2023 Lab Requisition [facility] Pathology & Laboratory Medicine - [facility] [address] [place] [address] Outr Resulting Lab, Provider Social History Tobacco [...] 1/2 ANTIGEN AND ANTIBODY, 4TH GENERATION Routine 09/18/2023 11:59 EDT documented in this encounter Results * HIV 1/2 ANTIGEN AND ANTIBODY, 4TH GENERATION (09/18/2023 11:59 EDT) HIV 1 and 2 Antibody/p24 Antigen, 4th Generation Negative Negative 09/19/2023 9:47 EDT [facility] Comment:If acute HIV-1 infec tion is suspected in a high risk patient, submit plasma specimen for HIV-1 RNA quantitation test. Blood VENOUS BLOOD / Unknown 09/18/2023 11:59 EDT 09/18/2023 21:23 EDT Narrative [facility] - 09/19/2023 9:47 EDT Fourth Generation assay performed on the Siemens [employer] XPT. us Provider Outr Resulting Lab IMMUNOLOGY AND SEROL OGY ORDERABLES Final Result [facility] [address] [place] [address] documented in this encounter Visit Diagnoses Not on filedocumented in this encounter Care Teams Logging Truck Driver Relationship Specialty Start Date End Date Unknown, Provider, PCP - General 10/14/20 documented as of this encounter
--- OUTSIDE RECORDS SUMMARY | 2024-01-31 08:31 | XMS_ITS | Encounter Summary ---
Author Organization [facility] Address [address] [place] [address] Care Team Providers Care Creative Assistant Name Role Phone Unknown, Provider Primary Care Provider Unava ilable Encounter Details Date Type Department Care Team (Late st Contact Info) Description 09/18/2023 Lab Requisition [facility] Pathology & Laboratory Medicine - [facility] [address] [place] [address] Outr Resulting Lab, Provider Social History Tobacco [...] RNA BY PCR Routine 09/18/2023 11:59 EDT HEPATITIS B SURFACE ANTIGEN Routine 09/18/2023 11:59 EDT documented in this encounter Results * HEPATITIS B SURFACE ANTIGEN (09/18/2023 11:59 EDT) Hep B Surface Ag Negative Negative 09/19/2023 9:09 EDT [facility] Blood VENOUS BLOOD / Unknown 09/18/2023 11:59 EDT 09/18/2023 21:23 EDT us Provider Outr Resulting Lab CHEMISTRY & BLOOD GA S ORDERABLES Final Result [facility] [address] [place] [address] * HEPATITIS C AB W REFLEX TO HCV RNA BY PCR (09/18/2023 11:59 EDT) Hep C Antibody Negative Negative 09/19/2023 10:12 EDT [facility] Blood VENOUS BLOOD / Unknown 09/18/2023 11:59 EDT 09/18/2023 21:23 EDT us Provider Outr Resulting Lab CHEMISTRY & BLOOD GA S ORDERABLES Final Result [facility] [address] [place] [address] documented in this encounter Visit Diagnoses Not on filedocumented in this encounter Care Teams Creative Assistant Relationship Specialty Start Date End Date Unknown, Provider, PCP - General 10/14/20 documented as of this encounter
[2024-01-31 10:02] VITALS: BP 111/55; PULSE 85; TEMP 36.9
[2024-01-31 10:09] VITALS: BP 111/55; PULSE 85
== END 2024-01-31 10:45 | disposition other institution (70) ==
LOC: BCD 08:30 → OBS 10:01
PROVIDERS: PCP Nurse Practitioner Family; Visit Provider Advanced Practice Midwife
DX: O36.8130 Decreased fetal movements, third trimester, not applicable or unspecified (principal); Z3A.30 30 weeks gestation of pregnancy
CPT/HCPCS: 59025

== ENCOUNTER 2024-03-12 14:04 | Outpatient (REF) | payer OTHER, MEDICAID, SELFPAY | END 2024-03-12 14:05 | disposition home or self-care (01) | LOC: LBN 14:04 | PROVIDERS: PCP Nurse Practitioner Family; Visit Provider Advanced Practice Midwife | DX: Z34.93 Encounter for supervision of normal pregnancy, unspecified, third trimester (principal) | CPT/HCPCS: 87081 ==

== ENCOUNTER 2024-04-11 11:47 | Outpatient (CLI) | payer OTHER, MEDICAID, SELFPAY ==
[2024-04-11 11:53] VITALS: BP 111/67; PULSE 78; TEMP 36.7
[2024-04-11 12:06] VITALS: BP 111/67; PULSE 78
--- NOTE | 2024-04-11 13:11 | W.OBNST ---
Date of service: 04/11/24 Time of Service: 13:11 NST Evaluation Reason for NST Reasons for Nonstress Test: POSTDATES Gestational Age Gestational Age in Weeks and Days: 40 Weeks and 6Days Test and Monitor Explained Test/Monitor Explained: Test Explained, Monitor Explained and Patient Verbalized Understanding Vital Signs Blood Pressure: 111/67 Pulse: 78 Temperature: 98.1 F Urine Results Urine Protein: Negative Urine Ketones: Negative Urine Glucose: Negative Urine Blood: Negative NST Information Date on Monitor: 04/11/24 Time on Monitor: 11:48 Date off Monitor: 04/11/24 Time off Monitor: 12:31 Total Time on Monitor: 43 NST Interventions: PO Hydration NST Evaluation Patient States Movement: Present FHR Baseline: 120 Variability: Moderate 6-25 bpm Accelerations: 15x15 Decelerations: None NST Results: Reactive Note Ultrasound Done: LOIS Total LOIS: 8.8 Other Pertinent Findings: Heart Rate (110), Presentation (cephalic) and Placental Location (posterior) Coding for LOIS w/NST: Completed Exam. NST Note Note: cvx 2/75%, posterior, soft, vtx -3, intact membranes IOL booked for 04/15/24 NST Reviewed and Verified by: Chanda Martinez
[2024-04-11 13:13] VITALS: BP 111/67; PULSE 78; TEMP 36.7
== END 2024-04-11 13:00 | disposition other institution (70) ==
LOC: BCD 11:48 → OBS 11:50
PROVIDERS: PCP Nurse Practitioner Family; Visit Provider Advanced Practice Midwife
DX: O48.0 Post-term pregnancy (principal); Z3A.40 40 weeks gestation of pregnancy
CPT/HCPCS: 59025; 76815

== ENCOUNTER 2024-04-12 05:58 | Inpatient (IN) | payer OTHER, MEDICAID, SELFPAY ==
[2024-04-12] VITALS (18 sets, daily range): BP systolic 117–135; BP diastolic 57–92; PULSE 69–104; RESP 12–16; TEMP 36.6–37; O2SAT 96–100
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
[2024-04-12] MEDS: Penicillin G POT. 5,000,000 UNITS in Normal Saline 100 ML 200 UNITS IVPB (06:25)
[2024-04-12 06:39] LABS: HCT 34.5 % (36.0-46.0); HGB 11.7 g/dL (11.2-15.7); MCH 28.4 pg (27.0-33.0); MCHC 33.9 % (32.0-36.0); MCV 84 fL (80-95); MPV 11.2 fL (8.0-11.0); Platelet Count 227 10^3/uL (130-400); RBC 4.12 10^6/uL (3.93-5.22); RDW-SD 39.5 fL; WBC 8.28 10^3/uL (4.4-10.8)
--- NOTE | 2024-04-12 11:29 | OBVDS_ITS ---
Date of service: 04/12/24 Time of Service: 11:29 OB Labor/ Delivery Information Baby A Delivery Delivery Method: Spontaneaous Presentation: Cephalic Cephalic Position: Vertex Vertex Position: Left Occipital Anterior Cord Description-Baby A: 3 Vessels and Other (cord wrapped around baby's hips and tangled around legs/feet) Amniotic Fluid: Clear Estimated Blood Loss: 300 QBL Delivery Outcome: Liveborn Transferred: Remains with Mother Note: AROM performed at 9 cm dilation after informed consent process with pt. She is unmedicated, tried but did not find nitrous helpful, desired to enter tub but EFM tracing during AROM demonstrated occasional variable decels which contraindicated use of the tub or being off the monitor. Variable and early decels continued intermittently through transition phase of labor, maternal position changes from supine, to lateral right or lateral left, or hands and knees on the bed were tried to improve tracing, moderate variability persisted and occasional scalp stim with reactive acceleration was performed. Once pt began to feel rectal pressure and the need for a BM, 2nd stage huddle was completed and pt coached to push while CNM manually massaged cervix to complete dilation. in hands and knees position accomplished of a vigorous female infant, she was passed between pt's thighs into her arms for S2S, and drying. Pitocin bolus IV started, cord ceased pulsation and was clamped then cut by FOB, cord blood collected, Hill placenta intact with trailing membranes with 3VC. Inspection of vagina and vulva revealed no lacerations, fundus is firm and below umbilicus, lochia is minimal. Strong family bonding observed, apgars 9/9, weight 3735 gms. Providers Nurse Ergonomics Consultant: Chanda Martinez Nurse: Wenceslao Lopez Nurse: Erna Blount Labor/Delivery Information Number of Babies in Womb: 1 Steroids Given: None Group Beta Strep: Positive Antibiotics Administered: Yes Number of Doses of Antibiotics: 1 Rubella Status: Immune Blood Type: A+ Varicella Immunity: Immune Shoulder Dystocia: No Note: AROM performed at 9 cm dilation (@0850) after informed consent process with pt. She is unmedicated by choice, tried but did not find nitrous helpful, desired to enter tub but EFM tracing during AROM demonstrated occasional variable decels which contraindicated use of the tub or being off the monitor. Variable and early decels continued intermittently through transition phase of labor, maternal position changes from supine, to lateral right or lateral left, or hands and knees on the bed were tried to improve tracing, moderate variability persisted and occasional scalp stim performed with reactive acceleration was performed. Once pt began to feel rectal pressure and the need for BM, 2nd stage huddle was completed and pt coached to push while CNM manually massaged cervix to complete dilation. in hands and knees position accomplished of a vigorous female infant, she was passed between pt's thighs into arms for S2S and drying. Pitocin bolus IV started, cord ceased pulsation and was clamped then cut by FOB, cord blood collected, Hill placenta intact with trailing membranes with 3VC. Inspection of vagina and vulva revealed no lacerations, fundus is firm and below umbilicus, lochia is minimal. Strong family bonding observed, apgars 9/9, weight Stages of Labor Onset of Labor Date: 04/12/24 Onset of Labor Time: 03:30 Complete Dilatation Date: 04/12/24 Complete Dilatation Time: 09:58 Labor - Stage 1 Duration: 6 hours and 28 minutes ROM Baby A: 04/12/24 ROM Baby A: 08:50 Infant Delivery Date-Baby A: 04/12/24 Infant Delivery Time-Baby A: 10:05 Labor Stage 2 Duration: 7 minutes Placenta Delivery Date-Baby A: 04/12/24 Placenta Delivery Time-Baby A: 10:16 Labor-Stage 3 Duration: 11 minutes Total Length of Labor-Baby A: 6 hours and 35 minutes Baby A Gender: Female Gestational Status: Term (39-41.6 wks) Gestational Age in Weeks/Days: 41 Weeks and 0 Days weight: 8 lb 3.748 oz Weight Comment: 3735 gms Length-Baby A: 20.87 in Score-1 Minute Interval(Baby A) Heart Rate-1 minute: 100 BPM or Greater Respiratory Effort- 1 minute: Spontaneous/Strong Cry Muscle Tone-1 minute: Active Movement Reflex Response-1 minute: Prompt Response Color-1 minute: Bluish Hands or Feet Total Score-1 minute: 9 Score-5 Minute Interval(Baby A) Heart Rate- 5 minute: 100 BPM or Greater Respiratory Effort-5 minute: Spontaneous/Strong Cry Muscle Tone-5 minute: Active Movement Reflex Response-5 minute: Prompt Response Color-5 minute: Bluish Hands or Feet Total Score- 5 minute: 9
[2024-04-12] MEDS: Acetaminophen 325 MG TAB 650 MG PO (13:14)
[2024-04-12] MEDS: Ibuprofen 600 MG TAB PO (13:15)
[2024-04-12] MEDS: Methylergonovine 0.2 MG TAB PO (16:59)
--- NOTE | 2024-04-12 17:36 | W.PM.OBPNV1 ---
Date of service: 04/12/24 Time of Service: 17:36 Assessment and Plan Assessment and plan (1) Normal labor: Status: Acute Assessment and plan: A: Stable PP bleeding P: Continue to monitor and administer PO Methergine as needed. Subjective Subjective Interval history: Patient passed a 105g blood clot in the last 1 hour. Fundus firm, perineum intact. Total QBL now 400cc. Lower uterine segment swept, no clots removed. PO Methergine given. Bleeding stable Exam Physical Exam Vital signs: Temp Pulse Resp BP Pulse Ox 98.6 F 91 H 16 126/78 96 04/12/24 15:57 04/12/24 17:00 04/12/24 17:00 04/12/24 17:00 04/12/24 17:00 Fundal Exam Fundus: Below Umbilicus and Firm Exam Perineum: Intact Results Hemoglobin/Hematocrit: Hgb 11.7 g/dL (11.2-15.7) 04/12/24 06:16 Hct 34.5 % (36.0-46.0) L 04/12/24 06:16 Abnormal Lab Findings: Abnormal Labs 04/12/24 06:16 Hct 34.5 L MPV 11.2 H
--- NOTE | 2024-04-12 18:36 | NUR.NOTE ---
This Rn assumed care at 1500. Patient OOB with nurse and TEMO, RN at that time. Voided 400. blayne care and bath provided. Pitocin running in iv from PP orders. Patient appropriate and vitals stable. Trickly noted on fundal exam. OOB with nurse, 250 ml voided. Back to bed and funal exam, large clot came out with fundal massage. 104.89 grams in weight from clot. CNM notified. CNM put order in for methergine 0.2 mg PO. given, see emar. Patient has firm fundas and CNM assessed cervix. No clots or bleeding noted per cnm. patietn eating and drinking, calm, and appropriate. color wnl. ambulating indept. report given to night staff and aware of clot and trickle prior to cnm assessment. urbano, rn Nursing Note:
[2024-04-13] MEDS: Acetaminophen 325 MG TAB 650 MG PO ×4 (00:37→22:19)
[2024-04-13] MEDS: Ibuprofen 600 MG TAB PO ×3 (08:02→22:19)
[2024-04-13 08:39] VITALS: BP 119/72; PULSE 77; RESP 18; TEMP 36.7; O2SAT 97
--- NOTE | 2024-04-13 11:06 | W.PM.OBPNV1 ---
Date of service: 04/13/24 Time of Service: 11:06 Assessment and Plan Assessment and plan (1) care and examination of lactating mother: Status: Acute Assessment and plan: A: Caring for baby independently. Pain is managed well with oral analgesics. Voiding without difficulty. well. A - stable mother and baby , Post day 1 P - Depo ordered for BC, to be given today or tomorrow. Anticipate d/c tomorrow Subjective Subjective Interval history: bleeding stabilized after PO Methergine, no further clots, normal lochia. desires discharge today however Ped's would like to observe baby another 24hrs due to inadequate GBS treatment Patient comments: Pain well controlled (afterpains managed with PO meds), Flatus present and Bowel Movement baby status: Doing well, Nursing well, Rooming in and Strong Bonding Observed [place] feeding status: Exclusively breast feeding Narrative: Accompanied by FOB, he is currently sleeping Body: afterpains are only complaint Pain: PO NSAIDs Breasts: soft everted nipples, working on latch Sleep: slept overnight Voiding/BM: voiding and having BM Review: positive experience Exam Physical Exam Vital signs: Temp Pulse Resp BP Pulse Ox 98.1 F 77 18 119/72 97 04/13/24 08:39 04/13/24 08:39 04/13/24 08:39 04/13/24 08:39 04/13/24 08:39 Vital Signs Reviewed: Yes Constitutional Constitutional: no acute distress HEENT Exam HEENT Exam: Normal Breast Exam Bilateral: Breast Exam: Normal and Soft Nipple Exam: Normal Respiratory Exam Respiratory Exam: Normal Fundal Exam Fundus: Below Umbilicus and Firm Exam Perineum: Intact and Normal External: Absent swelling Extremities Exam Extremity Exam: Normal Results Hemoglobin/Hematocrit: Hgb 11.7 g/dL (11.2-15.7) 04/12/24 06:16 Hct 34.5 % (36.0-46.0) L 04/12/24 06:16 Abnormal Lab Findings: Abnormal Labs 04/12/24 06:16 Hct 34.5 L MPV 11.2 H
[2024-04-13 19:10] VITALS: BP 120/72; PULSE 75; RESP 18; TEMP 36.7; O2SAT 97
[2024-04-14] MEDS: Acetaminophen 325 MG TAB 650 MG PO (04:16)
[2024-04-14] MEDS: Ibuprofen 600 MG TAB PO (04:16)
[2024-04-14 09:30] VITALS: BP 114/68; PULSE 82; RESP 14; TEMP 36.5
--- NOTE | 2024-04-14 10:26 | W.PM.OBPNV1 ---
Date of service: 04/14/24 Time of Service: 10:26 Assessment and Plan Assessment and plan (1) care and examination of lactating mother: Status: Acute Assessment and plan: A: Caring for baby independently. Pain is managed well with oral analgesics. Voiding without difficulty. well. A - stable mother and baby , Post day 2 P - Depo given, 2wk/6wk PP visits in place, Discharge to home Subjective Subjective Patient comments: No complaints, Pain well controlled, Tolerating diet, Flatus present and Bowel Movement [place] baby status: Doing well, Nursing well and Strong Bonding Observed [place] feeding status: Exclusively breast feeding Narrative: Accompanied by FOB Janes Body: feeling well Pain: afterpains improving Breast: nipples tender latch improving, +colostroum Sleep: slept overnight Voiding/BM: normal Review: much better than last delivery, COVID delivery Exam Physical Exam Vital signs: Temp Pulse Resp BP Pulse Ox 98.1 F 75 18 120/72 97 04/13/24 19:10 04/13/24 19:10 04/13/24 19:10 04/13/24 19:10 04/13/24 19:10 Vital Signs Reviewed: Yes Constitutional Constitutional: no acute distress HEENT Exam HEENT Exam: Normal Breast Exam Bilateral: Breast Exam: Normal and Soft Respiratory Exam Respiratory Exam: Normal Fundal Exam Fundus: Below Umbilicus and Firm Exam Perineum: Intact and Normal External: Absent swelling Extremities Exam Extremity Exam: Normal Results Hemoglobin/Hematocrit: Hgb 11.7 g/dL (11.2-15.7) 04/12/24 06:16 Hct 34.5 % (36.0-46.0) L 04/12/24 06:16 Abnormal Lab Findings: Abnormal Labs 04/12/24 06:16 Hct 34.5 L MPV 11.2 H
--- NOTE | 2024-04-14 10:41 | DSE_ITS ---
Date of service: 04/14/24 Time of Service: 10:41 DS: Diagnosis Discharge Diagnosis (1) care and examination of lactating mother: Status: Acute Asessment and Plan: Caring for baby independently. Pain is managed well with oral analgesics. Voiding without difficulty. well. A - stable mother and baby , Post day 2 P - Discharge to home. Routine post instructions. [facility] Discharge Plan Disposition Patient Disposition: Home Condition: Good Discharge Details Reason For Visit: Term Labor Admit Date/Time: 04/12/24 05:58 Admit Provider: Chanda Martinez Attending Provider: Chanda Martinez Primary Care Provider: Zandra Suggs Home Meds and New Rx's Prescriptions: No Action famotidine [Pepcid] 20 mg tablet 20 mg PO DAILY Qty: 30 2RF PNV,calcium [id number] acid 27 mg iron- 1 mg tablet 1 tab PO DAILY Qty: 90 6RF Rx Instructions: give with food (meal/snack) ibuprofen 600 mg tablet 600 mg PO Q6H PRN (Reason: pain) 14 Days Qty: 30 0RF acetaminophen [Tylenol 8 Hour] 650 mg tablet extended release 650 mg PO Q6H PRN 14 Days Qty: 30 0RF Discharge Instructions Stand Alone Forms: BC Instructions, BC Post Vaginal Deliver Activity:: Activity as Tolerated Equipment/Supplies:: No Equipment Needed Diet:: Normal Diet Discharge Orders Discharge Orders: Discharge Order (Routine); Ordered 04/14/24 Ordered By: Digna Weaver OB:DS Summary Summary Vaginal Delivery Method: Spontaneaous Episiotomy Description: None Laceration Description: None Laceration Extension: N/A Contraception Discussed Contraception Discussed: Yes Contraceptive Plan: Medroxyprogesterone (given), [place] Infant Gender-Baby A: Female weight: 8 lb 3.748 oz Status at Discharge Functional status at discharge: independent ambulation Overall status at discharge: patient is back to baseline Mental Status: mental status grossly normal Speech and Movement: speech and movement normal Mood: congruent mood Affect: normal affect Quality:SDOH Health Related Social Needs: No Data to Display Exam Physical Exam Vital signs: Temp Pulse Resp BP Pulse Ox 98.1 F 75 18 120/72 97 04/13/24 19:10 04/13/24 19:10 04/13/24 19:10 04/13/24 19:10 04/13/24 19:10 Constitutional Constitutional: no acute distress HEENT Exam HEENT Exam: Normal Breast Exam Bilateral: Breast Exam: Normal and Soft Respiratory Exam Respiratory Exam: Normal Fundal Exam Fundus: Below Umbilicus and Firm Exam Perineum: Intact and Normal External: Absent swelling Extremities Exam Extremity Exam: Normal PFSH All Active Problems (Updated 04/14/24 @ 10:42 by Digna Weaver CNM) care and examination of lactating mother (Acute) Migraine (Chronic) with blurred vision PTSD (post-traumatic stress disorder) (Acute) Per Pt at initial visit on 09/20/23. Sofia reports she was recently dx'd with ASD, ADHD, and PTSD by a psychiatry provider from her PCP office. Autism (Acute) Per Pt at initial visit on 09/20/23. Sofia reports she was recently dx'd with ASD, ADHD, and PTSD by a psychiatry provider from her PCP office. ADHD (Acute) Sofia reports she was dx'd with ASD, ADHD, and PTSD by a psychiatry provider from her PCP office (2023). (Acute) Insomnia (Acute) melatonin in the past Anxiety (Chronic) Has seen [facility] in the past, meds in the past not effective Depression (Chronic) Medical History (Updated 04/14/24 @ 10:42 by Digna Weaver CNM) Marijuana smoker Irregular menses Dysuria Fibroadenoma of left breast Oral contraception initial prescription Monilial vaginitis Viral upper respiratory illness Abnormal uterine bleeding (AUB) Surgical History History of ankle surgery Family History (Updated 12/20/23 @ 16:38 by [facility]) Maternal Grandfather Heart disease Esophageal cancer Maternal Grandmother Thyroid disease Mother Depression bipolar disorder Other Mood disorder Social History (Updated 08/25/23 @ 21:11 by Narcisa Batista MD) Second Hand Exposure: No Smoking risk assessment performed?: No Alcohol Intake: never Drug use: Never Substance use type: marijuana Details: Quit during . Household members: other Details: BF: Marrero D: Sexually active: Yes Current gender identity: male What is your relationship status?: living with partner Panel score (0-1 are the most socially isolated patients): 1 Seatbelt use: always Do you feel safe at home: Yes Do you feel safe in your relationship?: Yes Additional Social history: Supportive boyfriend of 2 years-Janes. Currently enrolled at [employer]. Pt's biological mom in [place]. Not involved. Biological father - no contact for years. History History 2 Para 1 Hx # Term Pregnancies 1 Multiple births 0 Hx # Pregnancies 0 Ectopic pregnancies 0 AB induced 0 Hx Number of Living Children 1 AB spontaneous 0 Past Pregnancies Del. Date GA/Weeks # Preg Succ Route Wgt Sex Labor Lgth Anesth esia Location Prov [facility] 10/20/20 40 No Yes vaginal 6 lb 12.99 oz Female 16 hrs regional [facility] Delivery Date: 10/20/20 Last Updated by: JOLEEN Santos Patient was positive for Covid 19 infection at time of delivery. DS: Data Vitals/I&O Vitals and I&O: Vital Signs Temperature 98.1 F 04/13/24 19:10 Temperature Source Oral 04/13/24 19:10 Pulse 75 04/13/24 19:10 Pulse Rhythm Regular 04/13/24 19:10 Respiratory Rate 18 04/13/24 19:10 Respiratory Depth Normal 04/13/24 19:10 Blood Pressure 120/72 04/13/24 19:10 Blood Pressure Mean 88 04/13/24 19:10 Pulse Oximetry 97 04/13/24 19:10 Oxygen Delivery Method Room Air 04/12/24 06:49 Oxygen Flow Rate 0 04/12/24 06:49 Pain Level 6 04/12/24 13:15 Intake & Output 04/13/24 04/13/24 04/14/24 11:59 23:59 11:59 Output Total 400 / 400 Balance -400 / -400 Output: Urine 400 / 400 Other: Urine Color Yellow
== END 2024-04-14 11:54 | disposition home or self-care (01) | DRG 807 ==
PROVIDERS: Admitting Provider Advanced Practice Midwife; PCP Nurse Practitioner Family; Visit Provider Advanced Practice Midwife
DX: O48.0 Post-term pregnancy (principal); Z37.0 Single live birth; O99.824 Streptococcus B carrier state complicating childbirth; Z3A.41 41 weeks gestation of pregnancy
CPT/HCPCS: 36415; 85027; 86850; 86900; 86901; J1050; J2540

== ENCOUNTER 2025-01-08 14:59 | Outpatient (REF) | payer OTHER, MEDICAID, SELFPAY ==
[2025-01-08 18:07] LABS: TSH (W/Ref FT4) 1.57 uIU/mL (0.55-4.78)
== END 2025-01-08 15:00 | disposition home or self-care (01) ==
LOC: NCHCN 14:59
PROVIDERS: PCP Nurse Practitioner Family; Visit Provider Nurse Practitioner Family
DX: G47.00 Insomnia, unspecified (principal)
CPT/HCPCS: 84443